=== PATIENT | female | born 1955 | race Caucasian/White ===

== ENCOUNTER 2019-01-21 09:25 | Outpatient (CLI) | payer OTHER | END 2019-01-21 09:26 | disposition critical access hospital (66) | LOC: EMS 09:25 | PROVIDERS: ATTEND Surgery | DX: M25.571 Pain in right ankle and joints of right foot (principal); X50.9XXA Other and unspecified overexertion or strenuous movements or postures, initial encounter; Y93.01 Activity, walking, marching and hiking; Y92.830 Public park as the place of occurrence of the external cause | CPT/HCPCS: A0425; A0429 ==

== ENCOUNTER 2019-01-21 09:42 | Emergency (ER) | payer SELFPAY ==
--- NOTE | 2019-01-21 09:59 | ED Physician Documentation ---
PD HPI LOWER EXT INJURY - Stated complaint Stated Complaint: R ANKLE PX - Chief complaint Chief Complaint: Trauma Ext - History obtained from History obtained from: Patient - History of Present Illness PD HPI LOW EXT INJURY LOCATION: Right, Ankle Type of injury: Twist Where injury occurred: Park Timing - onset: Today Timing - duration: Minutes Timing - details: Abrupt onset, Still present Improved by: Rest, Immobilization Worsened by: Moving, Palpating Associated symptoms: Swelling. No: Weakness, Numbness, Tingling Contributing factors: No: Anticoagulated Similar symptoms before: Diagnosis (ankle fracture) Recently seen: Not recently seen - Additional information Additional information: 63-year-old female who is visiting [facility] from [place]. She is camping with her dog and she has slipped and twisted her ankle walking [place] wet [place] the park. She was brought to the hospital by ambulance with an immobilization device in place. She states that she is fairly comfortable at the current time. She was not able to bear weight after this slip fall and twist. Review of Systems Constitutional: denies: Fever Eyes: denies: Decreased vision Ears: denies: Ear pain Nose: denies: Rhinorrhea / runny nose, Congestion Throat: reports: Sore throat Cardiac: denies: Chest pain / pressure, Palpitations Respiratory: denies: Dyspnea, Cough GI: denies: Abdominal Pain, Nausea, Vomiting PD PAST MEDICAL HISTORY - Present Medications Home Medications: Ambulatory Orders Medication Instructions Recorded Confirmed Atorvastatin [Lipitor] 01/21/19 Escitalopram [Lexapro] 10 mg PO DAILY 01/21/19 01/21/19 - Allergies Allergies/Adverse Reactions: Allergies Allergy/AdvReac Type Severity Reaction Status Date / Time letrozole Allergy Rash Verified 01/21/19 09:54 Sulfa (Sulfonamide Allergy Rash Verified 01/21/19 09:54 Antibiotics) PD ED PE NORMAL - Vitals Vital signs reviewed: Yes (hypertensive ) - General General: Alert and oriented X 3, No acute distress, Well developed/nourished - HEENT HEENT: Atraumatic, PERRL, EOMI - Respiratory Respiratory: No respiratory distress - Derm Derm: Normal color, Warm and dry, No rash - Extremities Extremities: Other (There is marked swelling to the lateral malleolus with mild tenderness. There is no tenderness along the entire fibula as palpated. There is no tenderness over the proximal 5th. There is tenderness over the talofibular ligament. ) - Neuro Neuro: Alert and oriented X 3, marzipan molder 2-12 intact, No motor deficit, No sensory deficit, Normal speech Eye Opening: Spontaneous Motor: Obeys Commands Verbal: Oriented GCS Score: 15 - Psych Psych: Normal mood, Normal affect Results - Vitals Vitals: Vital Signs - 24 hr 01/21/19 01/21/19 09:52 11:32 Temperature 36.4 C L Heart Rate 61 75 Respiratory 17 16 Rate Blood Pressure 133/84 H 143/78 H O2 Saturation 99 98 Oxygen O2 Source Room air - Rads (name of study) ankle Radiology: Prelim report reviewed (Impression: Minimally displaced lateral malleolar fractures with joint effusion and adjacent soft tissue swelling.), EMP read indepedently, See rad report PD MEDICAL DECISION MAKING - ED course Complexity details: reviewed results, re-evaluated patient, considered differential, d/w patient ED course: 63-year-old female visiting from [place] was placed into a posterior splint under crutches and instructed not to bear weight until casting is placed. Departure - Departure Disposition: 01 Home, Self Care Clinical Impression: Fracture of distal fibula Qualifiers: Encounter type: initial encounter Fracture type: closed Fracture morphology: other fracture Laterality: right Qualified Code(s): S82.831A - Other fracture of upper and lower end of right fibula, initial encounter for closed fracture Condition: Stable Instructions: ED Fx Ankle Lateral Malleolus Follow-Up: [facility] [Provider Group]
--- NOTE | 2019-01-21 11:01 | XRAY Report ---
Reason: pain/swelling after slip Procedure Date: 01/21/2019 Accession Number: [id number] / [id number] Procedure: XR - Ankle 3 View RT CPT Code: FULL RESULT: EXAM: RIGHT ANKLE RADIOGRAPHY EXAM DATE: 01/21/2019 10:27 AM. CLINICAL HISTORY: Pain/swelling after slip. COMPARISON: None. TECHNIQUE: 4 views. FINDINGS: Bones: Minimally displaced lateral malleolar fracture. Joints: Small joint effusion at the ankle. Soft Tissues: Soft tissue swelling along the lateral aspect of the ankle. IMPRESSION: Minimally displaced lateral malleolar fracture was joint effusion and adjacent soft tissue swelling. RADIA
[2019-01-21 11:33] VITALS: BP 143/78
== END 2019-01-21 12:14 | disposition home or self-care (01) ==
LOC: ED 09:42
DX: S82.61XA Displaced fracture of lateral malleolus of right fibula, initial encounter for closed fracture (principal); X50.1XXA Overexertion from prolonged static or awkward postures, initial encounter; Y93.01 Activity, walking, marching and hiking; Y92.830 Public park as the place of occurrence of the external cause
CPT/HCPCS: 99283